=== PATIENT | female | born 1970 | race Caucasian/White ===

== ENCOUNTER 2025-06-11 13:24 | Outpatient (AMB) | payer BC, SELFPAY ==
[2025-06-11 13:29] VITALS: BMI 33.8
--- NOTE | 2025-06-11 13:29 | A.PHYSOV_ITS ---
Vital Signs 06/11/25 13:29 Height 5 ft 4 in Weight 197 lb BMI 33.8 Intake Visit Reasons: bilateral hip bursa injections Intake Note: Patient is a 54 year old female here today for bilateral bursa injections. Lard Maker Required: No Allergies amoxicillin Allergy (Unknown, Verified 06/11/25 13:31) Unknown chlorthalidone Allergy (Unknown, Verified 06/11/25 13:31) Unknown losartan Allergy (Unknown, Verified 06/11/25 13:31) Unknown oxycodone Allergy (Unknown, Verified 06/11/25 13:31) Unknown COUNT INCLUDES THE [facility] Medical History (Updated 06/11/25 @ 13:45 by JOVANNY Kahn) Lumbar radiculitis Surgical History H/O tubal ligation H/O shoulder surgery History of cholecystectomy Social History Household Members: Spouse Alcohol intake: current Alcohol intake frequency: holidays/special occasions only e-Cigarette/Vaping Use: Currently Using Current occupational status: employed and unemployed Physical Exam Vital Signs: BMI result Body Mass Index 33.8 Office Procedures AMB Hip Injection AMB Hip Injection Procedure Details: Bilateral Greater trochanteric bursal injection: The risks, benefits and complications of the left greater trochanteric bursitis/gluteal tendinopathy wer e discussed with the patient, including but not limited to infection, increased serum glucose, nerve damage, bleeding and pain. All questions were answered to the patient's satisfaction. Verbal consent was obtained. The patient was eager to proceed. Patient was cleansed with Betadine, ethyl chloride was then used to desensitize the skin. Using an a 25-gauge needle 40 mg of Kenalog and 3 mL 2% lidocaine were injected over the greater trochanter of maximal tenderness. The patient tolerated the procedure well without immediate complication. Postinjection instructions were given. The procedure was repeated on the right. Hip (Bursa) Injection - : Bilateral All charges added?: Procedure code (CPT) selection complete Office Meds Kenalog 40 mg/mL suspension for injection Performing Provider: JOVANNY Kahn Performing [place] [facility] Administered by: JOVANNY Kahn on 06/11/25 13:46 Dose Route Admin Location Dispensed Lot Number Expiration Date [facility] Sales Promotion Officer 40 mg intra-articular 1 mL [id number] [employer] Total Dispensed Waste 1 mL 0 % lidocaine (PF) 20 mg/mL (2 %) injection solution Performing Provider: JOVANNY Kahn Performing Location: [facility] Administered by: JOVANNY Kahn on 06/11/25 13:46 Dose Route Admin Location Dispensed Lot Number Expiration Date [facility] Sales Promotion Officer 60 mg intra-articular 5 mL [id number] [facility] Total Dispensed Waste 5 mL 40 % Assessment & Plan Assessment & Plan (1) Greater trochanteric bursitis of both hips: Code(s): M70.61 - Trochanteric bursitis, right hip; M70.62 - Trochanteric bursitis, left hip Category: Medical Plan Ms. Zambrano is a 54-year-old female seen in evaluation today for bilateral greater trochanteric bursitis. She responded very well to hip bursal injection in the past. Her pain has returned despite performing her physician directed home exercise plan and using her medications as prescribed. Today she consented to repeat hip bursal injection. She was given post-injection instructions, recommend: Moist heat compresses for 15 minutes up to 5 times daily. Continue low-impact activities and hip bursal exercises. Follow-up with our office as needed. Thank you for allowing me to participate in the care of your patient. Orders: Orders AMB Hip/Bursa Injection Today M70.61 - Trochanteric bursitis, right hip, M70.62 - Trochanteric bursitis, left hip Coding Level of Care Code Procedure Only Diagnoses Greater trochanteric bursitis of both hips M70.61; M70.62 CPT Codes AMB Hip Injection - Hip/Bursa Injection - : Bilateral ([id number])
--- OUTSIDE RECORDS SUMMARY | 2025-06-11 16:45 | XMS_ITS | Clinical Summary ---
Author Organization [facility] [address] [place] [address] Address [address] [facility] ANDREAS Langley Phone Care Team Providers Care Ichthyologist Name Role Phone Rebeca Tran NP Primary Care Provider [phone] Allergies Active Allergy Reactions Criticality Noted Date Comments Amoxicillin 07/07/2018 Chlorthalidone 02/15/2019 Losartan 07/07/2018 Medications diclofenac (VOLTAREN) 1 % topical gel Apply 4 g topically 2 times daily as needed (shoulder pain). 4 Active fluticasone propionate (FLONASE) 50 mcg/actuation nasal spray SPRAY 1 SPRAY INTO EACH NOSTRIL 2 TIMES PER DAY 9 Active Ventolin HFA 90 mcg/actuation inhaler Inhale 2 puffs by mouth if needed. Active estradioL (ESTRACE) 0.01 % (0.1 mg/gram) vaginal cream Insert 2 g into the vagina if needed. 4 Active nystatin (MYCOSTATIN) 100,000 unit/gram powder Apply topically 2 (two) times a day. 15 g 2 5 08/26/19 26 Active traZODone (DESYREL) 50 mg tablet Take 1 tablet (50 mg total) by mouth at bedtime as needed for sleep. 90 tablet 1 5 Active escitalopram (LEXAPRO) 20 mg tablet TAKE 1 TABLET (20 MG TOTAL) BY MOUTH ONE TIME EACH DAY 90 tablet 1 5 Active valACYclovir (VALTREX) 1 gram tablet TAKE 1 TABLET BY MOUTH 2 TIMES A DAY IF NEEDED FOR COLD SORE 60 tablet 5 Active Active Problems Problem Noted Date Diagnosed Date Primary insomnia 10/20/2024 Anxiety 02/24/2024 Primary hypertension 02/24/2024 Osteoarthritis 02/24/2024 Intertrigo 08/26/2020 Macromastia 08/26/2020 GERD (gastroesophageal reflux disease) 9 Class 1 obesity with serious comorbidity and body mass index (BMI) of 32.0 to 32.9 in adult 11/22/2018 Immunizations Immunization Administration Dates Next Due Influenza trivalent, 0.5mL, preservative free (Fluarix; FluLaval; Fluzone) ages 6mo and older (Afluria) 3 years and older 04/08/2016 Influenza trivalent, with pr eservative (Fluzone; Afluria) 6mo and older 04/07/2019 Surgical History Surgery Date Site/Laterality Comments TUBAL LIGATION PROCEDURE: HISTORICAL TUBAL LIGATION CHOLECYSTECTOMY 05/03/2020 PROCEDURE: AR CHOLECYSTECTOMY SHOULDER SURGERY 06/21/2023 - 06/20/2024 Left BARIATRIC SURGERY 06/21/2018 - 06/20/2019 gastric sleeve Medical History Medical History Date Comments HTN (hypertension) DX:HTN (hyper tension) Anxiety DX:Anxiety Osteoarthritis DX:Osteoarthriti s Severe obesity (BMI 35.0-39. 9) with comorbidity (CMS/HCC V24, CMS/HCC V28) 07/07/2018 DX:Severe obesi ty (BMI 35.0- 39.9) with comorbidity ([facility]); COMMENT: Hypertension GERD (gastroesophageal reflux disease) 02/15/2019 DX:GERD (gastroesophageal reflux disease) Depression Family History Medical History Relation Name Comments Hypertension Father Other cancer Father Other cancer Maternal Grandfather Diabetes Maternal Grandmother Hypertension Mother Other cancer Paternal Grandmother Relation Name Status Comments Father Alive Maternal Grandfather Maternal Grandmother Mother Alive Paternal Grandmother Social History Tobacco Use Types Packs/Day Years Used Date Smoking Tobacco: Every Day Smokeless Tobacco: Never Tobacco Cessation:Ready to Q uit: No; Counseling Given: Yes Alcohol Use Standard Drinks/Week Comments No 0 (1 standard drink = 0.6 oz pur e alcohol) Comments No Sex and Gender Information Value Date Recorded Sex Assigned at Not on file Legal Sex Female 9:38 PM EDT Gender Identity Not on file Sexual Orientation Not on file Obstetrics History Para Term AB IAB SAB Ectopic Multiple Livin g Live Births 1 Last Filed Vital Signs Vital Sign Reading Time Taken Comments Blood Pressure 110/82 12/01/2024 10:18 AM EDT Pulse 79 12/01/2024 9:36 AM EDT Temperature 36.8 C (98.2 F) 08/10/2024 10:55 AM EST Respiratory Rate - - Oxygen Saturation - - Inhaled Oxygen Concentration - - Weight 88.2 kg (194 lb 6.4 oz) 12/01/2024 9:36 A M EDT Height 162.6 cm (5' 4 ) 12/01/2024 9:36 AM EDT Body Mass Index 33.37 12/01/2024 9:36 AM EDT Plan of Treatment Upcoming Encounters Date Type Department Care Team (Late st Contact Info) Description 07/02/2025 10:45 AM EST Office Visit Internal Medicine - [facility] [address] [place], [place] [phone] Rebeca Tran, CHELSEY [address] [place] [address] Health Maintenance Due Date Last Done Comments Social Influencers of Health Screening 11/07/2021 Depression Screening 06/21/2024 02/17/2024 DTaP,Tdap,and Td Vaccines (1 - Tdap) 08/25/2025 Postponed from 1988 (Patient Refused) Zoster Vaccines (1 of 2) 08/25/2025 Pos tponed from 11/15/2019 (Patient Refused) Hypertension/CHF/CAD Annual BMP Blood Test 08/28/2025 08/28/2024, 07/09/2023 Breast Cancer Screening 10/23/2026 10/24/19 25, 07/27/2023, 11/19/2021, Additional history exists Cervical Cancer Screening: Pap Smear 10/15/2027 10/14/2024 Cholesterol Screening (Lipid Panel) 08/28/2029 08/28/2024, 07/09/2023 Colorectal Cancer Screening: Colonoscopy 06/21/2032 06/21/2022 RSV Immunization Adult Patients (1 - 1-dose 75+ series) 2044 Influenza Vaccine Discontinued 04/07/2019, 04/08/2016 COVID-19 Vaccine Discontinued 06/19/2021, 05/2021, 07/05/2020 Hepatitis C Screening Completed 07/12/2023 HIB Vaccines Aged Out No longer eligi ble based on patient's age to complete this topic HIV Screening Discontinued HPV Vaccines Aged Out No longer eligi ble based on patient's age to complete this topic Hepatitis A Vaccines Aged Out No long er eligible based on patient's age to complete this topic Hepatitis B Vaccines Discontinued IPV Vaccines Aged Out No longer eligi ble based on patient's age to complete this topic MMR Vaccines Aged Out No longer eligi ble based on patient's age to complete this topic Meningococcal ACWY Vaccine Aged Out N o longer eligible based on patient's age to complete this topic Meningococcal B Vaccine Aged Out No l onger eligible based on patient's age to complete this topic Pneumococcal Vaccine: 50+ Years Discontinued RSV Immunization Patients Under 20 months Aged Out No longer eligible based on patient's age to complete this topic Varicella Vaccines Aged Out No longer eligible based on patient's age to complete this topic Procedures Procedure Name Priority Date/Time Associated Diagnosis Comments MG MAMMO DIGITAL SCREENING W GENARO BILAT Routine 10/23/2024 8:02 AM EDT Encounter for gynecological examination (general) (routine) without abnormal findings EXTERNAL PAP SMEAR 10/14/2024 COMPREHENSIVE METABOLIC PANEL Routine 08/28/2024 8:30 AM EDT Screening for metabolic disorder LIPID PANEL WITH REFLEX TO DIRECT LDL Routine 08/28/2024 8:30 AM EDT Screening for metabolic disorder Encounter for lipid screening for cardiovascular disease DEPRESSION SCREENING Routine 02/17/2024 HEPATITIS C SCREENING Routine 07/12/2023 COLONOSCOPY Routine 06/21/2022 from Last 3 Months or Most Recently Relevant to Health Maintenance Results * MG Mammo Digital Screening w Genaro bilat (10/23/2024 8:02 AM EDT) Anatomical Region Laterality Modality Breast Bilateral Mammography 10/23/2024 10:1 7 AM EDT Impressions 10/23/2024 10:28 AM EDT No mammographic evidence of malignancy. No suspicious interval change. A negative mammogram in the presence of a clinically suspicious palpable abnormality does not preclude the possibility of malignancy or alter the indications for biopsy. ASSESSMENT: BI-RADS 2: BENIGN RECOMMENDATION(S): 1: Routine screening mammogram BILATERAL in 1 year. [facility]amm[facility] location[facility] [address], [address] -------- FINAL REPORT -------- Dictated By: Favian Reyes Dictated Date: 10/23/2024 10:17 ET Assigned Physician: Favian Reyes Reviewed and Electronically Signed By: Favian Reyes Signed Date: 10/23/2024 10:28 ET Workstation ID: [id number] Transcribed By: Self Edit Transcribed Date: 10/23/2024 10:23 ET Narrative 10/23/2024 10:28 AM EDT EXAM: SCREENING MAMMOGRAPHY, BILATERAL HISTORY: SCREENING. No additional history. COMPARISON: 07/27/23, 11/19/21, 09/04/20 TECHNIQUE: Synthesized CC and MLO projections of each breast. Tomosynthesis of each breast in the CC and MLO projections. ADDITIONAL IMAGING: None Computer-aided detection was employed with the iCAD [employer] AI 3-D. TISSUE DENSITY: The breasts are heterogeneously dense, which may obscure small masses. (BI-RADS category C) FINDINGS: RIGHT BREAST: No suspicious mass. No suspicious calcification. No distortion. Unchanged focal asymmetry 9 o'clock region 8 cm from the right nipple. LEFT BREAST: No suspicious mass. No suspicious calcification. No distortion. No additional suspicious left breast findings Procedure Note Favian Reyes MD - 10/23/2024 EXAM: SCREENING MAMMOGRAPHY, BILATERAL HISTORY: SCREENING. No additional history. COMPARISON: 07/27/23, 11/19/21, 09/04/20 TECHNIQUE: Synthesized CC and MLO projections of each breast.Tomosynthesis of each breast in the CC and MLO projections. ADDITIONAL IMAGING: None Computer-aided detection was employed with the iCAD [employer] AI 3-D. TISSUE DENSITY: The breasts are heterogeneously dense, which may obscuresmall masses. (BI-RADS category C) FINDINGS: RIGHT BREAST: No suspicious mass. No suspicious calcification. No distortion.Unchanged focal asymmetry 9 o'clock region 8 cm from the right nipple. LEFT BREAST: No suspicious mass. No suspicious calcification. No distortion. Noadditional suspicious left breast findings IMPRESSION: No mammographic evidence of malignancy. No suspicious interval change. A negative mammogram in the presence of a clinically suspicious palpableabnormality does not preclude the possibility of malignancy or alter theindications for biopsy. ASSESSMENT: BI-RADS 2: BENIGN RECOMMENDATION(S): 1: Routine screening mammogram BILATERAL in 1 year. [facility]amm[facility] location[facility] [address], [address] -------- FINAL REPORT -------- Dictated By: Favian Reyes Dictated Date: 10/23/2024 10:17 ET Assigned Physician: Favian Reyes Reviewed and Electronically Signed By: Favian Reyes Signed Date: 10/23/2024 10:28 ET Workstation ID: [id number] Transcribed By: Self Edit Transcribed Date: 10/23/2024 10:23 ET Sammi Benavidez DO IMG BI PROCEDURES Final R esult * External PAP smear (10/14/2024) Provider [facility] LAB CYTOLOGY ORDERABLES Final Result * (ABNORMAL) Lipid panel with reflex to direct LDL (08/28/2024 8:30 AM EDT) Cholesterol 209(H) 0 - 200 mg/dL LAB CHEMISTRY METHOD 08/28/2024 10:52 AM EDT [facility] Triglycerides 85 0 - 150 mg/dL LAB CHEMISTRY METHOD 08/28/2024 10:52 AM EDT [facility] HDL 66 >=40 mg/dL LAB CHEMISTRY METHOD 08/28/2024 10:52 AM EDT [facility] LDL Calculated 126(H) 0 - 100 mg/dL LAB CHEMISTRY METHOD 08/28/2024 10:52 AM EDT [facility] VLDL Cholesterol Wero 17 mg/dL LAB CHEMISTRY METHOD 08/28/2024 10:52 AM EDT [facility] Non HDL Chol. (LDL+VLDL) 143 <145 mg/dL LAB CHEMISTRY METHOD 08/28/2024 10:52 AM [facility] Chol/HDL Ratio 3.2 0.0 - 4.4 LAB CHEMISTRY METHOD 08/28/2024 10:52 AM [facility] Blood Venous blood specimen / Unknown Venipuncture / Unknown 08/28/2024 8:30 AM EDT 08/28/2024 8:30 AM EDT us Rebeca Tran NP LAB BLOOD ORDERABLES Final Resu lt [facility] [address] [place] [address], * (ABNORMAL) Comprehensive metabolic panel (08/28/2024 8:30 AM EDT) Sodium 140 133 - 145 mmol/L LAB CHEMISTRY METHOD 08/28/2024 10:52 AM T [facility] Potassium 3.9 3.5 - 5.5 mmol/L LAB CHEMISTRY METHOD 08/28/2024 10:52 AM [facility] Chloride 103 96 - 110 mmol/L LAB CHEMISTRY METHOD 08/28/2024 10:52 AM [facility] CO2 28 21 - 32 mmol/L LAB CHEMISTRY METHOD 08/28/2024 10:52 AM [facility] Anion Gap 9 3 - 11 LAB CHEMISTRY METHOD 08/28/2024 10:52 AM [facility] Glucose 92 70 - 100 mg/dL LAB CHEMISTRY METHOD 08/28/2024 10:52 AM [facility] BUN 19 5 - 25 mg/dL LAB CHEMISTRY METHOD 08/28/2024 10:52 AM [facility] Creatinine 0.74 0.50 - 1.10 mg/dL LAB CHEMISTRY METHOD 08/28/2024 10:52 AM [facility] eGFR 96 >=60 mL/min/1. 73m2 LAB CHEMISTRY METHOD 08/28/2024 10:52 AM [facility] Comment:Calculation based on the Chronic Kidney Disease Epidemiology Collaboration (CKD-EPI) equation refit without adjustment for race. BUN/Creatinine Ratio 25.7 LAB CHEMISTRY METHOD 08/28/2024 10:52 AM [facility] Calcium 9.3 8.5 - 10.5 mg/dL LAB CHEMISTRY METHOD 08/28/2024 10:52 AM [facility] AST (SGOT) 18 10 - 42 unit/L LAB CHEMISTRY METHOD 08/28/2024 10:52 AM [facility] ALT (SGPT) 25 10 - 60 unit/L LAB CHEMISTRY METHOD 08/28/2024 10:52 AM [facility] Alkaline Phosphatase 66 42 - 121 unit/L LAB CHEMISTRY METHOD 08/28/2024 10:52 AM [facility] Total Protein 6.5 6.0 - 8.0 g/dL LAB CHEMISTRY METHOD 08/28/2024 10:52 AM [facility] Albumin 4.0 3.2 - 5.0 g/dL LAB CHEMISTRY METHOD 08/28/2024 10:52 AM [facility] Total Bilirubin 1.6(H) 0.0 - 1.4 mg/dL LAB CHEMISTRY METHOD 08/28/2024 10:52 AM EDT [facility] Blood Venous blood specimen / Unknown Venipuncture / Unknown 08/28/2024 8:30 AM EDT 08/28/2024 8:30 AM EDT Rebeca Tran NP LAB BLOOD ORDERABLES Final Resu lt [facility] [address] [place] [address], * Depression Screening (02/17/2024) Pathologist [facility] Depression Screening Abstracted Historical Provider HEALTH MAINTENANCE Final Result * Hepatitis C Screening (07/12/2023) Pathologist [facility] Hepatitis C Screening negative Historical Provider HEALTH MAINTENANCE Final Result * Colonoscopy (06/21/2022) Pathologist [facility] Colonoscopy No Interpretation , Abstracted Anatomical Region Laterality Modality Other Historical Provider HEALTH MAINTENANCE Final Result from Last 3 Months or Most Recently Relevant to Health Maintenance Insurance Care Teams Ichthyologist Relationship Specialty Start Date End Date Rebeca Tran NP [address] [place] [address] PCP - General 06/29/23
--- OUTSIDE RECORDS SUMMARY | 2025-06-11 16:45 | XMS_ITS | Data Portability ---
Author Organization JOVANNY PintoExparlene s, [address] Address [address] [place] [address] Assessment No assessment recorded. Plan of Treatment Reminders Order Date Submit Date Provider Last Modified By Organization Details Last Modified Time Details Appointments None recorded. Lab rapid flu (A+B) 2021 022 [email or web address] _yola larson, [address] [place] [address] [place], [address], 2 08:50:35 rapid SARS CoV 2 Ag, QL IA, respiratory specimen 2021 [email or web address] _yola larson, [address] [place] [address] [place], [address], 08:50:35 Referral None recorded. Procedures None recorded. Surgeries None recorded. Imaging None recorded. Medication Orders Medrol (Eric) 4 mg tablets in a dose pack 2022 023 CARLOS [facility] #[id number], [address] [place], [address], 3 15:32:28 benzonatate 200 mg capsule 2021 022 [email or web address] 1 [facility] #[id number], [address] [place], [address], 3 15:11:08 azithromyci n 250 mg tablet 2021 022 [email or web address] 1 [facility] #[id number], [address] [place], [address], 15:11:03 Patient TargetsNo targets recorded. Patient Instructions Encounter Date Encounter Id Patient Instructions Last Modified By Organization Details Last Modified Time 06/19/2022 [id number] cough: care instructions Not available 06/19/2022 08:50:35 Increase fluids Get plenty of rest. If you experience any chest pain or shortness of breath go the ER If there are any symptoms of worsening or any symptoms that concern you I want you to go to the emergency room Return to clinic if worsens, becomes more concerning or as needed. Go to Emergency Room if you feel you have a life threatening condition. Cool mist humidifier can help soothe the airways - use it especially at night close to your bed. Take over the counter cold remedies as needed. If you have high blood pressure, diabetes, or thyroid disease, avoid cold medicine with decongestants - May take Coricidin. Not available 06/19/2022 08:50:33 12/12/2022 [id number] poison zehra, oak, and sumac: care instructions [email or web address] Not available 12/12/2022 15:32:26 You can take ove r the counter tylenol or ibuprofen per package instructions for the pain. See printed instructions. Follow-up with your doctor if no improvement in 1 week. Seek Emergency Medical evaluation for any worsening symptoms. [email or web address] Not available 12/12/2022 15:31:39 Diagnosis and treatment discussed in clinic. Take medication as prescribed. Eliminate known allergens. Return to clinic if no improvement or if condition worsens for potential comb winder referral. Patient verbalized understanding of instructions. [email or web address] Not available 12/12/2022 15:31:31 Reason for Referral None Reported. Results Created Date Observation Date Name Description Value Unit Range Abnormal Flag Note LastModifiedBy Organization Detail LastModifiedTime 06/19/20 22 06/19/2022 rapid SARS CoV 2 Ag, QL IA, respi rator y speci men Unknown Analyte Normal =Negat aguila Not Available [address] [facility], [place], [address], 06/19/2022 08:17:34 06/19/20 22 06/19/2022 rapid SARS CoV 2 Ag, QL IA, respi rator y speci men Unknown Analyte negati ve Not Available [address] [place] [address], [place], [address], 06/19/2022 08:17:34 06/19/20 22 06/19/2022 rapid flu (A+B) Unknown Analyte Normal = Negati ve Not Available [address] [place] [address], [place], [address], 06/19/2022 08:17:29 06/19/20 22 06/19/2022 rapid flu (A+B) Unknown Analyte Normal = Negati ve Not Available [address] [place] [address], [address], 06/19/2022 08:17:29 06/19/20 22 06/19/2022 rapid flu (A+B) Unknown Analyte negati ve Not Available [address] [place] [address], [place], [address], 06/19/2022 08:17:29 06/19/20 22 06/19/2022 rapid flu (A+B) Unknown Analyte negati ve Not Available [address] [place] [address], [address], 06/19/2022 08:17:29 Result Notes None recorded. 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 Procedures Surgical History Date Name Laterality Status Provider Name and Address Organization Details Recorded Time laparoscopic sleeve gastrectomy completed AZ ESPARZA PA - [facility] 06/19/2022 08:16:39 ligation of fallopian tube completed AZ ESPARZA PA - [facility] 06/19/2022 08:16:58 cholecystectomy completed AZ ESPARZA José Manuel A - [facility] 06/19/2022 08:17:22 Imaging Results None recorded. Procedure Notes None recorded. Medical Equipment None Reported. Allergies Allergen ID Allergen Name Allergen Category Reaction Reaction Severity Criticality Documentation Date Start Date Code Code System Note Provider Name and Address Organization Details Recorded Time 09459 amoxicill in medicatio n itching Not available Not available 06/19/2022 723 RxNorm [place] ESPARZA trish, [place] - [facility] 08:13:41 Medications Name Sig Start Date Stop Date Status Note LastModified by Organization Details LastModified Time nystatin 100,000 unit/mL oral suspension TAKE 5ML BY MOUTH 4 TIMES A DAY FOR 7 DAYS 06/19 completed Not Available Not Available Not Available azithromyci n 250 mg tablet TAKE 2 TABLETS BY MOUTH TODAY, THEN TAKE 1 TABLET DAILY FOR 4 DAYS 12/12 completed Not Available Not Available Not Available benzonatate 200 mg capsule TAKE 1 CAPSULE BY MOUTH THREE TIMES A DAY FOR 10 DAYS 12/12 completed Not Available Not Available Not Available valacyclovi r 1 gram tablet TAKE 1 TABLET BY MOUTH EVERY DAY active Not Available Not Available No t Available phenazopyri dine 200 mg tablet TAKE 1 TABLET BY MOUTH THREE TIMES A DAY NEEDED 06/19 completed Not Available Not Available Not Available Medrol (Eric) 4 mg tablets in a dose pack Use per dose pack instructi ons 2022 active Not Available Not Available Not Avai lable metronidazo le 500 mg tablet TAKE 1 TABLET BY MOUTH TWICE A DAY 06/19 completed Not Available Not Available Not Available amlodipine 5 mg tablet TAKE 1 TABLET BY MOUTH EVERY DAY 06/19 completed Not Available Not Available Not Available ciprofloxac in 500 mg tablet TAKE 1 TABLET BY MOUTH TWICE A DAY 12/12 completed Not Available Not Available Not Available sulfamethox azole 800 mg-trimetho prim 160 mg tablet TAKE 1 TABLET BY MOUTH EVERY 12 HOURS FOR 7 DAYS 12/12 completed Not Available Not Available Not Available phenazopyri dine 100 mg tablet TAKE 1 TABLET (100 MG) BY ORAL ROUTE 3 TIMES PER DAY AFTER MEALS NEEDED FOR 7 DAYS 12/12 completed Not Available Not Available Not Available albuterol sulfate HFA 90 mcg/actuati on aerosol inhaler INHALE 1 TO 2 PUFFS BY MOUTH EVERY 4 TO 6 HOURS NEEDED active Not Available Not Available No t Available fluticasone propionate 50 mcg/actuati on nasal spray,suspe nsion USE 1 TO 2 SPRAYS IN EACH NOSTRIL ONCE DAILY 12/12 completed Not Available Not Available Not Available loratadine 10 mg tablet TAKE 1 TABLET BY MOUTH EVERY DAY 12/12 completed Not Available Not Available Not Available escitalopra m 20 mg tablet TAKE 1 TABLET BY MOUTH EVERY DAY active Not Available Not Available No t Available nitrofurant oin monohydrate /macrocryst als 100 mg capsule TAKE 1 CAPSULE BY MOUTH TWICE A DAY 06/19 completed Not Available Not Available Not Available bupropion HCl 150 mg tablet,12 hr sustained-r elease(smok ing deterrent) TAKE 1 TABLET BY MOUTH TWICE A DAY 06/19 completed Not Available Not Available Not Available Clenpiq 10 mg-3.5 gram-12 gram/160 mL oral solution TAKE 160 ML BY MOUTH DIRECTED 12/12 completed Not Available Not Available Not Available Vitals Date Recorded Body height Body temperature Respiratory rate Heart rate Oxygen saturation Body mass index (BMI) Body weight Systolic And Diastolic Provider Name and Address Organization Details Last Updated DateTime 3 162.56 cm 97.7 [degF] 18 /min 68 /min 99 % 31.4 kg/m2 26837.4 g 132/89 mm[Hg] RAMOS VILLASENOR [place] - [facility] 3 15:14:00 Date Recorded Body height Body mass index (BMI) Body weight Respiratory rate Oxygen saturation Heart rate Body temperature Systolic And Diastolic Provider Name and Address Organization Details Last Updated DateTime 2 162.56 cm 34 kg/m2 90169.2 9 g 18 /min 97 % 84 /min 98.2 [degF] 130/88 mm[Hg] AZ ESPARZA PA - [facility] 2 08:18:21 Social History Question Answer Notes LastModified by E[employer] Details LastModified Time Tobacco Smoking Status Current Some Day Smoker per patient, stopped a couple months ago JOVANNY Parkinson [facility] 06/19/2022 08:16:19 Have You Recently Traveled Abroad? No [email or web address] Information not available 06/19/2022 Are You Currently In School? No Information not available 12/12/2022 Sex: Unknown Functional Status Question Answer Note LastModified by [employer] Details LastModified Time Do you use any illicit or recreational drugs? No [email or web address] Information not available 06/19/2022 Do you or have you ever used any other forms of tobacco or nicotine? No [email or web address] Information not available 06/19/2022 What is your level of alcohol consumption? Occasional Information not available 06/19/2022 Are you currently employed? Yes Information not available 12/12/2022 Mental Status None recorded. Family History Relationship Description Onset Age of this Age Resolved Age Notes LastModified by Organization Details LastModified Time Father No current problems or disability [email or web address] Not available 06/19 08:15:36 Mother No current problems or disability [email or web address] Not available 06/19 08:15:36 Medical History No medical history recorded. Gynecological History Statement/Question Response Is there any chance of ? No Obstetrics History GPAL:G 0 P 0 0 0 0 Immunizations Vaccine Type Date Status Note Provider Nam e and Address Organization Details Recorded Time Influenza, split virus, quadrivalent, preservative 9 completed JOVANNY Guy [facility] 12/12/2022 15:10:34 COVID-19, mRNA, LNP-S, PF, 100 mcg/0.5mL dose or 50 mcg/0.25mL dose 1 completed JOVANNY Guy [facility] 12/12/2022 15:10:34 COVID-19, mRNA, LNP-S, PF, 100 mcg/0.5mL dose or 50 mcg/0.25mL dose 1 completed RAMOS chambers PA Tiffanie [facility] 12/12/2022 15:10:34 COVID-19, mRNA, LNP-S, PF, 100 mcg/0.5mL dose or 50 mcg/0.25mL dose 1 completed JOVANNY Guy [facility] 12/12/2022 15:10:34 Influenza, split virus, trivalent, PF 6 completed JOVANNY Guy [facility] 12/12/2022 15:10:34 Past Encounters Encounter ID Performer Location Encounter Start Date Encounter Closed Date Diagnosis/Indication Diagnosis SNOMED-CT Code Diagnosis ICD10 Code Diagnosis IMO Codes Diagnosis Note [id number] [address] [place] [address] 07/22/2017 17:36:00 07/22/2017 19:29:36 [id number] [address] [place] [address] 10/31/2015 14:05:48 10/31/2015 15:14:26 [id number] [address] [place] [address] 11/17/2016 19:09:26 11/17/2016 19:36:28 [id number] [address] [place] [address] 02/02/2017 09:19:05 02/02/2017 10:16:52 [id number] [address] [place] [address] 01/31/2018 08:47:56 01/31/2018 09:26:05 [id number] [address] [place] [address] 01/25/2019 17:27:36 01/25/2019 18:08:48 [id number] [address] [place] [address] 09/13/2016 18:22:46 09/13/2016 19:03:38 [id number] [address] [place] [address] 05/18/2017 08:26:48 05/18/2017 09:30:08 [id number] [address] [place] [address] 03/26/2017 09:08:11 03/26/2017 10:22:53 [id number] [address] [place] [address] 07/20/2017 19:10:14 07/20/2017 19:54:30 [id number] [address] [place] [address] 10/06/2015 12:32:18 10/06/2015 12:53:03 [id number] [address] [place] [address] 01/16/2019 18:07:43 01/16/2019 18:48:36 [id number] [address] [place] [address] 07/28/2017 15:10:56 07/28/2017 16:18:14 [id number] [address] [place] [address] 11/25/2016 09:57:27 11/25/2016 10:59:29 [id number] [address] [place] [address] 10/23/2015 14:24:45 10/23/2015 16:03:17 [id number] [address] [place] [address] 08/22/2016 08:33:49 08/22/2016 09:48:50 [id number] JOVANNY Torres [address] [place] [address] 06/19/2022 08:03:06 06/19/2022 08:54:10 Cough [id number] R05.9 [id number] GERMAN SINGH MD [address] [place] [address] 12/12/2022 09:24:02 12/12/2022 15:44:34 Contact dermatitis caused by plants 403335674 L25.5 Benadryl Gel:Apply to affected area 3 times a day as needed for itching for 3-5 days. Health Concerns Section Related Observation LastModified by Organization Detai ls LastModified Time None Recorded Concern Status LastModified by Organization Details LastModified Time None Recorded Advance Directives Directive None Recorded Payers Insurance Date Sequence Insurance Name Policy Number Policy Burgess Covered Member ID Burgess Member ID Guarantor Name 06/19/2022 1 [facility] [id number] Maryann M Christopher Zambrano [id number] Maryann Christopher Zambrano 12/12/2022 1 [facility] [id number] Maryann Christopher Zambrano [id number] Maryann M [place] Notes Date Note Type Note Provider Name and Address Organization Details Recorded Time 2 text/html CoughReported by PatientHPIFor severity, patient reportsworseningbut reportsmoderate. For timing, patient reportsworsening. For associated symptoms, patient reportsfeverandpost nasal drip. For source of patient information, patient reportsinformation obtained from patientandpatient arrived at urgent care ambulatory. JOVANNY Torres [facility] [place], [address], [place] - [facility] 06/19/2022 08:55:42 3 text/html UC Rash/Skin LesionReported by PatientHPIFor quality, patient reportsitchy,red, andspreading. For location, patient reportsneck,chest,arms,a bdomen,legs, andthighs. For severity, patient reportsmoderate. For duration, patient reports1 weeks. For associated symptoms, patient reportsno feverandno fatigue. For treatment history, patient reportsno history of treatment. 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 GERMAN SINGH MD [address] [place], [address], [place] - [facility] 12/12/2022 15:39:37 OBGyn Episode No OBEpisode recorded.
== END 2025-06-11 13:44 | disposition home or self-care (01) ==
LOC: HO.HPHYS 13:25
PROVIDERS: PCP Nurse Practitioner Primary Care; Visit Provider Physician Assistant
DX: M70.61 Trochanteric bursitis, right hip (principal); M70.62 Trochanteric bursitis, left hip
CPT/HCPCS: 20610

== ENCOUNTER → 2025-06-11 13:24 | Outpatient (BNVA) | payer BC, SELFPAY | PROVIDERS: PCP Nurse Practitioner Primary Care; Visit Provider Physician Assistant | DX: M70.61 Trochanteric bursitis, right hip (principal); M70.62 Trochanteric bursitis, left hip | CPT/HCPCS: 20610; J2003; J3301 ==